=== PATIENT | female | born 1965 | race African-American/Black ===

== ENCOUNTER → 2021-04-25 | Day surgery (SDC) | payer OTHER | END | disposition home or self-care (01) | LOC: FMAMMOTONE 11:52 | PROVIDERS: ATTEND Surgery | PROC: 0HBU3ZX Excision of Left Breast, Percutaneous Approach, Diagnostic (ICD-10-PCS; principal; 2021-04-25) | DX: N60.32 Fibrosclerosis of left breast (principal); N64.89 Other specified disorders of breast; R92.8 Other abnormal and inconclusive findings on diagnostic imaging of breast | CPT/HCPCS: 19081; 76098-TC-FY; 87899; A4648 ==